=== PATIENT | male | born 1960 | race Caucasian/White ===

== ENCOUNTER 2017-12-02 12:34 | Inpatient (IN) | payer OTHER ==
[~2017-12-02] VITALS: Ht 185.4 cm; Wt 75.9 kg
[~2017-12-02 12:34] MED LIST: FIORICET 325 MG1 TAB PO; PERCOCET 325 MG1 TA2 PO
--- NOTE | 2017-12-02 13:33 | ED GENERAL ADULT ---
History of Present Illness General Chief Complaint: Fall Stated Complaint: SIB DR. VALDIVIA FOR FALLING DOWN Source: patient, family, old records, PCP Exam Limitations: no limitations Vital Signs & Intake/Output Vital Signs & Intake/Output Vital Signs Date Time Temp Pulse Resp B/P B/P Pulse O2 O2 Flow FiO2 Mean Ox Delivery Rate 12/02 1248 98.0 69 15 118/85 95 Room Air Room Air Allergies Coded Allergies: No Known Allergies (12/02/17) Reconcile Medications Acetaminophen/Butalbital/Caf (Fioricet 325 MG-50 MG-40 MG) 1 TAB TAB 1 TAB PO Q6HR PRN PAIN OXYCODONE HCL/ACETAMINOPHEN (Percocet 5-325 MG Tablet) 325 MG/5 MG TAB 1-2 TAB PO Q4-6 PRN PRN PAIN Triage Note: PT TO ED (SENT BY DR. VALDIVIA) FOR FREQUENT FALLS X LAST 6 WEEKS. PT HAS BEEN FALLING AND REPORTS THAT RIGHT BEFORE HE FALLS HE FEELS HIS HEAD THROBBING AND THEN LOSES HIS BALANCE. PT LAST FELL THIS MORNING DENIES LOC, BUT HAS HAD EPISODES THAT HAVE CAUSED LOC. A/OX 4 IN TRIAGE. REPORTS +HEADACHE. HAD HEAD CT DONE YESTERDAY AT [facility] AND BLOOD WORK DONE. Triage Nurses Notes Reviewed? yes HPI: Patient was sent to the emergency department in anticipation of admission. Patient has had a 40 pound unintentional weight loss. Patient states he has no appetite and then when he does eat he gets epigastric pain that is relieved when he is done eating. This is made him not wanting eat. Patient has also been having increasing falls. Patient fell 3 times today alone. Family states that 4 days ago he passed out and was unconscious for 15-20 minutes before coming around again. Patient states he has to walk by holding onto the wall or the countertops. Patient is also been experiencing a throbbing frontal headache that he's had for the past few weeks. The pain is constant. There is no radiation. The pain is 10 out of 10. There are no aggravating or mitigating factors. Patient had a CAT scan of his abdomen and pelvis which was normal as well as a CAT scan of his head which were normal. Past History Travel History Traveled to [place] past 21 day No Medical History Any Pertinent Medical History? see below for history Neurological: NONE EENT: NONE Cardiovascular: NONE Respiratory: SOB Gastrointestinal: DIVERTICULOSIS Hepatic: NONE Renal: NONE Musculoskeletal: NONE Psychiatric: NONE Endocrine: hypothyroidism Surgical History Surgical History: non-contributory Psychosocial History Who do you live with Family What is your primary language Beninese Tobacco Use: Current Daily Use Daily Tobacco Use Amount/Type: => 5 Cigarettes daily ETOH Use: denies use Illicit Drug Use: denies illicit drug use Family History Hx Contributory? No Review of Systems Review of Systems Constitutional: Reports: no symptoms. EENTM: Reports: no symptoms. Respiratory: Reports: no symptoms. Cardiovascular: Reports: no symptoms. GI: Reports: see HPI, abdominal pain. Genitourinary: Reports: no symptoms. Musculoskeletal: Reports: no symptoms. Skin: Reports: no symptoms. Neurological/Psychological: Reports: see HPI, ataxia, headache. Hematologic/Endocrine: Reports: no symptoms. Immunologic/Allergic: Reports: no symptoms. All Other Systems: Reviewed and Negative Physical Exam Physical Exam General Appearance: well developed/nourished, alert, awake, anxious, moderate distress Head: atraumatic, normal appearance Eyes: Bilateral: PERRL, EOMI. Ears, Nose, Throat: normal pharynx, DRY MUCOSA Neck: normal inspection, supple, full range of motion Respiratory: normal breath sounds, chest non-tender, no respiratory distress, lungs clear Cardiovascular: regular rate/rhythm, normal peripheral pulses Gastrointestinal: normal bowel sounds, soft, non-tender, no organomegaly Back: normal inspection, normal range of motion Neurologic/Psych: SEE BELOW Comments: A&O X3 CN 2-12 INTACT MOTRO 5 OVER 5 REFLEXES 1+ SENSATION INTACT PAST POINTING AND ABNORMAL HEEL TO SHINON RIGHT UPON STANDING - LEANS TORIGHT AND NEEDS TO BE CAUGHT Core Measures ACS in differential dx? No CVA/TIA Diagnosis: No Sepsis Present: No Sepsis Focused Exam Completed? No Progress Differential Diagnoses I considered the following diagnoses in my evaluation of the patient: [ INTRACRANIAL MASS,POSTERIOR CVA,ELECTROLYTW BANORMALITY,CANCER] Plan of Care: Orders Procedure Date/time Status Regular Diet 12/02 D Active Patient Data 12/02 1446 Active MRI-HEAD W & W/O AMINTA 12/02 144 Active MRI-CERVICAL W & W/O AMINTA 12/02 1445 Active ED Holding Orders 12/02 1442 Active Admit to inpatient 12/02 1442 Active Vital Signs 12/02 1442 Active Code Status 12/02 1442 Active URINE DRUGS OF ABUSE 12/02 1427 Complete URINALYSIS 12/02 1427 Complete TROPONIN LEVEL 12/02 1332 Complete LIPASE 12/02 1332 Complete COMPREHENSIVE METABOLIC PANEL 12/02 1332 Complete CBC WITHOUT DIFFERENTIAL 12/02 1332 Complete AMYLASE 12/02 1332 Complete EKG 12/02 1250 Active Current Medications Sig/Minesh Start time Last Medication Dose Stop Time Status Admin Sodium Chloride 1,000 ML BOLUS ONE 12/02 1500 AC (Normal Saline 0.9%) 12/02 1559 Laboratory Tests 12/02/17 1441: Anion Gap 10, Estimated GFR > 60, BUN/Creatinine Ratio 20.0, Glucose 96, Calcium 9.8, Total Bilirubin 0.6, AST 21, ALT 30, Alkaline Phosphatase 79, Troponin I < 0.01, Total Protein 7.1, Albumin 4.0, Globulin 3.1, Albumin/Globulin Ratio 1.3, Amylase 42, Lipase 107, CBC w Diff NO MAN DIFF REQ, RBC 4.71, MCV 94.3 H, MCH 31.1 H, MCHC 33.0, RDW 14.1, MPV 7.9, Gran % 61.4, Lymphocytes % 29.9, Monocytes % 6.1, Eosinophils % 2.3, Basophils % 0.3, Absolute Granulocytes 6.1, Absolute Lymphocytes 2.9, Absolute Monocytes 0.6, Absolute Eosinophils 0.2, Absolute Basophils 0 12/02/17 1430: Urine Opiates Screen < 100, Methadone Screen < 40, Barbiturate Screen < 60, Ur Phencyclidine Scrn < 6.00, Amphetamines Screen < 100, U Benzodiazepines Scrn 103 , Urine Cocaine Screen < 50, Urine Cannabis Screen < 5.00, Urine Color YEL, Urine Clarity CLEAR, Urine pH 6.5, Ur Specific [place] 1.010, Urine Protein NEG, Urine Ketones NEG, Urine Nitrite NEG, Urine Bilirubin NEG, Urine Urobilinogen 0.2, Ur Leukocyte Esterase NEG, Ur Microscopic EXAM NOT REQUIRED, Urine Hemoglobin NEG, Urine Glucose NEG Initial ED EKG: NSR, nonspecific ST T wave chg Prior EKG: unchanged Departure Departure Disposition: STILL A PATIENT Condition: Stable Clinical Impression Primary Impression: Ataxia Secondary Impressions: Weight loss Referrals: Red Valdivia MD (PCP/Family) Departure Forms: Customer Survey General Discharge Information Admission Note Spoke With: Rob Valdivia MDhu S. Documentation of Exam: Documentation of any treatments & extenuating circumstances including Concerns Regarding Discharge (functional status, medication knowledge or non-compliance, living conditions, etc.) that warrant an admission rather than observation: [PT IS VERY UNSTABLE ON HIS FEET AND CAN NOT EVEN STAND BY THE BEDSIDE. HE HAS CEREBELLAR FINDINGS. HE NEEDS A NEUROLOGICAL EVALUATION, MRI, PT CONSULT, PT WILL REQUIRE MULTIPLE DAYS IN THE HOSPITAL.] Critical Care Note Critical Care Note Critical Care Time: non-applicable
[2017-12-02 14:22] LABS: ABSOLUTE BASOPHIL COUNT 0 /CUMM (0.0-0.2); ABSOLUTE EOSINOPHIL COUNT 0.2 /CUMM (0.0-0.7); ABSOLUTE GRANULOCYTE CT 6.1 /CUMM (1.4-6.5); ABSOLUTE LYMPH COUNT 2.9 /CUMM (1.2-3.4); ABSOLUTE MONOCYTE COUNT 0.6 /CUMM (0.10-0.60); BASOPHIL % 0.3 % (0.0-2.0); EOSINOPHIL % 2.3 % (0-5); GRANULOCYTE % 61.4 % (42.2-75.2); HEMATOCRIT 44.4 % (42-52); MEAN CORPUSCULAR HGB 31.1 PG (27.0-31.0); MEAN CORPUSCULAR VOLUME 94.3 FL (80.0-94.0); MEAN PLATELET VOLUME 7.9 FL (7.4-10.4); PLATELET COUNT 300 /CUMM (130-400); RBC DISTRIBUTION WIDTH 14.1 % (11.5-14.5); RED BLOOD CELL CT 4.71 /CUMM (4.70-6.10); WHITE BLOOD CELL COUNT 9.9 /CUMM (4.8-10.8)
--- NOTE | 2017-12-02 14:24 | RADIOLOGY REPORT ---
EXAMINATION: XR PORTABLE CHEST CLINICAL INFORMATION: Cough COMPARISON: 11/04/2017 TECHNIQUE: Portable AP 80 degrees upright view of the chest was obtained. FINDINGS: Cardiac and mediastinal silhouettes are normal in appearance. The lungs and pleural spaces are clear. There is widening noted at the right acromioclavicular joint, possibly postoperative. IMPRESSION: The lungs and pleural spaces are clear.
--- NOTE | 2017-12-02 14:37 | PN- Att Addend ---
Attending Addendum Attending Brief Note This is a gentleman with below mentioned problems have been having frequent falls in the past 4-6 weeks. This has been getting worse. This morning he did have a fall. No significant headache but however sometimes he says he does get some throbbing type pain. No significant loss of consciousness but history is not too reliable. Recently he does complain of significant loss of weight in about 30-40 pounds.. He has had significant COPD, ongoing smoking, hyperlipidemia, significant anxiety and depression followed by outpatient psychiatry. He has had GERD and prior weight loss. He has had an extensive GI workup in the past which was unremarkable. Recently did have a CT scan of the abdomen and pelvis with contrast which was unremarkable. He also had had extensive blood work which was unremarkable which included HIV, vasculitis panel, thyroid function test, RPR etc. This has been negative. Previous history of narcotic use but his tox screen has been negative and is not been using any substances. No fever no chills, no recent infection, recent head CT which was unremarkable as well. percent predicted own no admission) (Narcotics for hand surg etc) Review of symptoms Now has occ fall with gait imbalance No head ache Complains of memory loss Previous cervical disc disease but did not see neurosurg, no radiculopathy or any weakness Sig anxiety and depression now slightly, better seeing psych regularly Now has loss of wt Less appetite Previous narcotic addiction to pain meds with sig withdrawal at home did not get admitted at that time, now off narcotics Occ insomnia No suicidal or homicidal ideation No smoking now No etoh No pain med use Occ nausea and wt loss Recent hematuria and is followed by urology and ct abd neg so far Recent blood work reviewed nil acute Past History Travel History Traveled to [place] past 21 day No Medical History Neurological: NONE EENT: NONE Cardiovascular: NONE Respiratory: SOB Gastrointestinal: DIVERTICULOSIS Hepatic: NONE Renal: NONE Musculoskeletal: NONE Psychiatric: NONE Endocrine: hypothyroidism Psychosocial History Who do you live with Family What is your primary language Yoruba Tobacco Use: Current Daily Use Daily Tobacco Use Amount/Type: => 5 Cigarettes daily ETOH Use: denies use Illicit Drug Use: denies illicit drug use On physical exam alert awake and oriented 3 Neck supple no JVD Chest decreased breath sounds otherwise unremarkable Heart S1-S2 was heard negative for any abnormality Abdominal exam soft bowel sounds were heard No cyanosis clubbing Alert awake and oriented 3 Cranial nerves seems intact Motor 5 over 5 Reflexes appears okay Sensation appears intact Abnormal [id number] on the right, upon standing leans to the right. Vital Signs Date Time Temp Pulse Resp B/P B/P Pulse O2 O2 Flow FiO2 Mean Ox Delivery Rate 12/02 1248 98.0 69 15 118/85 95 Room Air Room Air Orders Procedure Date/time Status TROPONIN LEVEL 12/02 1332 Active LIPASE 12/02 1332 Active COMPREHENSIVE METABOLIC PANEL 12/02 1332 Active CBC WITHOUT DIFFERENTIAL 12/02 1332 Complete AMYLASE 12/02 1332 Active EKG 12/02 1250 Active IMPRESSION This is a gentleman with significant history of prior smoking, moderate to severe COPD with FEV1 of around 2 L, hyperlipidemia, anxiety and depression followed by psychiatry, hypothyroidism on appropriate replacement therapy, previous GERD, [id number] smoking history quit in 2014, stable lung nodule which is 3 mm, previous cervical disc herniation C6-C7 at that time had not seen a neurosurgeon few years ago with no previous radiculopathy, previous colon polyp followed by Dr. Toledo, previous urinary urgency and mild hematuria followed by urology, previous history of narcotic addiction now has been not using any substances now has * Progressive history of recurrent fall with loss of balance and lower extremity weakness with no significant radiculopathy. Differential diagnosis is broad. Patient has had recent extensive blood work which has been negative. (Negative for HIV, no evidence suggestive of vasculitis, normal B12, negative RPR etc.) Differential diagnoses is broad which include cervical myelopathy versus peripheral neuropathy versus demyelinating syndrome patient needs to be admitted * Significant weight loss and an ex-smoker. With normal chest x-ray to rule out malignancy. Recent CT abdomen and pelvis with contrast unremarkable needs a CT chest * Previous total thyroidectomy Hypothyroidism, on appropriate replacement therapy, hyperlipidemia stable. * Previous history of GERD and diarrhea and weight loss with negative panendoscopy few years ago with no significant diarrhea * Significant anxiety and depression followed by psychiatry on a regular basis patient says she is not too depressed however this needs to be ruled out as well * Recent hematuria, urinary urgency with negative CT scan followed by urology patient is pending cystoscopy * Previous history of narcotic addiction but no evidence suggestive of substance use in the recent past PLAN Admit him to the hospital Frequent neuro checks Neurology consult MRI of the head with and without gadolinium Carotid ultrasound MRI of the C-spine to rule out any significant cervical myelopathy Check random cortisol level We will follow closely
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
[2017-12-02] MEDS ORDERED: LEVOTHYROXINE100 MC1 PO (15:44)
[2017-12-02] MEDS ORDERED: LORAZEPAM1 M1 PO (15:45)
[2017-12-02] MEDS ORDERED: GABAPENTIN300 M2 PO (15:45)
[2017-12-02] MEDS ORDERED: SYMBICORT 16010.2 GM INH (15:45)
[2017-12-02] MEDS ORDERED: SERTRALINE HCL100 MG PO (15:46)
[2017-12-02] MEDS ORDERED: PROAIR HFA8.5 GM INH (15:46)
[2017-12-02] MEDS ORDERED: ASPIRIN EC81 M1 PO (15:46)
[2017-12-02] MEDS ORDERED: TAMSULOSIN HCL0.4 M1 PO (15:46)
[2017-12-02] MEDS ORDERED: OMEPRAZOLE20 M3 PO (15:47)
--- NOTE | 2017-12-02 18:08 | MRI REPORT ---
MRI OF THE BRAIN WITH AND WITHOUT IV CONTRAST MRI OF THE CERVICAL SPINE WITH AND WITHOUT IV CONTRAST INDICATION: Weight loss, ataxia, and cerebellar findings. Question mass. COMPARISON: Head CT 12/01/2017. TECHNIQUE: Multiplanar multisequence MR imaging of the brain and cervical spine are obtained without and following the administration of 8 cc of Gadavist without complication. FINDINGS: BRAIN MRI: There is no pathologic intracranial enhancement. There is no hydrocephalus, extra-axial surface collection, or herniation. There are mild T2 signal changes within the supratentorial white matter, likely mild chronic microangiopathy. The major flow voids at the skull base are preserved. There is no acute infarct on diffusion-weighted imaging. There is no intracranial hemorrhage on the gradient recalled echo acquisition. The midline structures are normal. The cerebellar tonsils are normally positioned. The cerebellum and brainstem are normal. The craniocervical junction is normal. Osseous marrow signal intensity is homogenous. The visualized soft tissues are unremarkable. CERVICAL SPINE MRI: There is mild retrosubluxation of C3 on C4, C4 on C5, and C5 on C6. Vertebral body heights are maintained. There is moderate disc volume loss at C4-C5 and mild disc volume loss at C5-C6 and C6-C7. Mild Modic type I endplate signal changes at C6-C7. No additional bone marrow edema. No acute fractures. Brain cervical junction is unremarkable. No pathologic intrathecal enhancement. There is prominent symmetric soft tissue at the tongue base, likely lingual tonsillar hypertrophy that can be correlated with direct visual inspection. The cervical arterial flow voids are maintained. No definite true cord signal abnormality is appreciated with assessment limited by the degree of artifact. C2-C3: Disc contour is normal. There is no central canal stenosis and there is no foraminal stenosis. There is mild bilateral facet arthropathy. C3-C4: There is a central disc protrusion that flattens the ventral cord, resulting in mild narrowing of the central canal. Leftward than right uncovertebral joint hypertrophy and hypertrophic facet arthropathy with moderate to severe left and mild right foraminal stenosis. C4-C5: Diffuse disc osteophyte complex and ligamentum flavum thickening result in moderate central canal stenosis and mild flattening of the ventral cord. Left greater than right uncovertebral joint hypertrophy and hypertrophic facet arthropathy with severe left and moderate to severe right foraminal stenosis. C5-C6: There is a diffuse disc osteophyte complex that along with ligamentum flavum thickening results in moderate central canal stenosis and mild mass effect on the cord. Uncovertebral joint hypertrophy and hypertrophic facet arthropathy bilaterally, greater on the left with moderate to severe left and moderate right foraminal stenosis. C6-C7: A central disc protrusion indents the ventral thecal sac without resulting in significant central canal stenosis. Bilateral uncovertebral joint hypertrophy and hypertrophic facet arthropathy resulting in moderate bilateral foraminal stenosis. C7-T1: Disc contour is normal. No central canal stenosis and no foraminal stenosis. IMPRESSION: - No acute intracranial findings. No enhancing lesions. Mild chronic microangiopathy. - Multilevel cervical spondylosis. Multifactorial degenerative changes result in moderate central canal stenosis and mild mass effect on the cervical cord at the C4-C5 and C5-C6 levels and a central disc protrusion at C3-C4 slightly flattens the ventral cord without significant central canal stenosis. Varying degrees of moderate to severe foraminal stenosis throughout the cervical spine as described. No pathologic enhancement within the cervical spine. - There is prominent symmetric soft tissue at the tongue base, likely lingual tonsillar hypertrophy that can be correlated with direct visual inspection.
--- NOTE | 2017-12-02 18:57 | ULTRASOUND REPORT ---
US DUPLEX CAROTID AND VERTEBRAL CLINICAL INFORMATION: Dizziness and frequent falls. COMPARISON: None available. TECHNIQUE: Real-time ultrasound and Doppler techniques (integrating B-mode 2D vascular images, Doppler spectral analysis and color flow Doppler imaging) were utilized to interrogate the extracranial carotid and vertebral arteries bilaterally. The degree of stenosis determined by criteria similar to NASCET. FINDINGS: Right common carotid artery peak systolic velocity is 79.2 cm/s. Right internal carotid artery peak systolic velocities range between 45.1 and 94.4 cm/s with a maximal end-diastolic velocity of 48.7 cm/s. Right external carotid artery peak systolic velocity is 86.8 cm/s. There is antegrade flow within the right vertebral artery. No atherosclerotic plaque at the right carotid bifurcation. Left common carotid artery peak systolic velocity is 110 cm/s. Left internal carotid artery peak systolic velocity ranges between 76.2 and 93.2 cm/s with a maximal end-diastolic velocity of 44 cm/s. Left external carotid artery peak systolic velocity is 83.8 cm/s. There is antegrade flow within the left vertebral artery. No atherosclerotic plaque at the left carotid bifurcation. IMPRESSION: Unremarkable carotid ultrasound. There is no significant arterial stenosis involving the internal carotid arteries by sonographic criteria. Normal antegrade flow within the vertebral arteries bilaterally.
--- NOTE | 2017-12-02 20:27 | CT SCAN REPORT ---
CT CHEST WITH CONTRAST CLINICAL INFORMATION: Patient has a known 3 mm lung nodule. Looking for new mass versus pathology. COMPARISON: Chest CT 02/02/2017. TECHNIQUE: Multidetector volumetric CT imaging of the chest was obtained after the administration of 65 mL of Optiray 320 intravenous contrast without immediate adverse reactions. Axial MIP volume rendering provided. Sagittal and coronal reformatted images were obtained. FINDINGS: There is a new irregularly shaped 1.3 cm AP by 0.9 cm TV by 1.9 cm CC nodule within the medial aspect of the left upper lobe inseparable from and occluding a left upper lobe segmental bronchus and tracking along a few subsegmental bronchi in this region on image 179 of series 4. There are pulmonary arterial branches along the anterior and posterior medial margin of this lesion and there is a pulmonary vein along the anterolateral margin of this lesion. Findings are highly concerning for pulmonary malignancy and can be followed with PET and/or biopsy. There is a stable appearing 3 mm pulmonary nodule within the right upper lobe on image 226 of series 4. There is a stable appearing 3 mm pulmonary nodule within the right lower lobe in image 393 of series 4. There is centrilobular emphysema. There are multiple nodular groundglass opacities within the medial aspect of the left upper lobe not present on prior studies that may be infectious, inflammatory, or neoplastic in etiology. Dependent secretions within the trachea. The thoracic aorta is normal in caliber. The heart is normal in size without evidence of a pericardial effusion. There is no mediastinal, hilar, or axillary adenopathy. There is nodularity of the left adrenal gland that can be further assessed with a PET/CT in light of the above findings. No acute osseous abnormalities. Thoracic spondylosis. No suspicious intraosseous lesions. IMPRESSION: - There is a new irregularly shaped 1.3 cm AP by 0.9 cm TV by 1.9 cm CC nodule within the medial aspect of the left upper lobe inseparable from and occluding a left upper lobe segmental bronchus and tracking along a few subsegmental bronchi in this region on image 179 of series 4. There are pulmonary arterial branches along the anterior and posterior medial margin of this lesion and there is a pulmonary vein along the anterolateral margin of this lesion. Findings are highly concerning for pulmonary malignancy and can be followed with PET and/or biopsy. - There are multiple nodular groundglass opacities within the medial aspect of the left upper lobe not present on prior studies that may be infectious, inflammatory, or neoplastic in etiology. - There is nodularity of the left adrenal gland that can be further assessed with a PET/CT in light of the above findings. - There is no mediastinal lymphadenopathy. - There are stable appearing 3 mm pulmonary nodules within the right upper lobe and the right lower lobe. - There is centrilobular emphysema.
[2017-12-02 22:12] VITALS: BP 122/80
[2017-12-03 06:48] VITALS: BP 92/60
[2017-12-03 08:16] VITALS: BP 90/64
[2017-12-03 08:23] LABS: ABSOLUTE BASOPHIL COUNT 0 /CUMM (0.0-0.2); ABSOLUTE EOSINOPHIL COUNT 0.2 /CUMM (0.0-0.7); ABSOLUTE GRANULOCYTE CT 4.3 /CUMM (1.4-6.5); ABSOLUTE LYMPH COUNT 2.5 /CUMM (1.2-3.4); ABSOLUTE MONOCYTE COUNT 0.5 /CUMM (0.10-0.60); BASOPHIL % 0.4 % (0.0-2.0); EOSINOPHIL % 3.1 % (0-5); GRANULOCYTE % 57.2 % (42.2-75.2); HEMATOCRIT 42.3 % (42-52); MEAN CORPUSCULAR HGB 30.9 PG (27.0-31.0); MEAN CORPUSCULAR HGB CONC 32.9 G/DL (33.0-37.0); MEAN CORPUSCULAR VOLUME 93.9 FL (80.0-94.0); MEAN PLATELET VOLUME 8.6 FL (7.4-10.4); PLATELET COUNT 294 /CUMM (130-400); RBC DISTRIBUTION WIDTH 14.7 % (11.5-14.5); RED BLOOD CELL CT 4.51 /CUMM (4.70-6.10); WHITE BLOOD CELL COUNT 7.5 /CUMM (4.8-10.8)
--- NOTE | 2017-12-03 10:43 | PN- Att Addend ---
Attending Addendum Attending Brief Note Covering attending note. Patient seems anxious and wants to go home. Neurology consult pending depending on their findings we may be able to let him go home and continue the workup as an outpatient blood pressure slightly on the low side, which check orthostatics. No other changes on physical patient is alert and oriented 3 24 TOTALS 12/03 0000 12/02 0000 Intake Total 100 Output Total Balance 100 Intake, IV 0 Intake, Oral 100 Patient 167 lb Weight Weight Bed scale Measurement Method Current Medications Sig/Minesh Start time Last Medication Dose Route Stop Time Status Admin Acetaminophen 0 .STK-MED ONE 12/02 2009 DC PO Acetaminophen 650 MG Q6PRN PRN 12/02 1600 AC 12/02 PO 2007 Albuterol Sulfate 2 PUF Q4P PRN 12/02 1630 AC INH Budesonide/ 2 PUF Q12H 12/03 1900 AC Formoterol Fumarate INH Budesonide/ 2 PUF BID 12/02 2200 DC 12/03 Formoterol Fumarate INH 0718 Enoxaparin Sodium 0 .STK-MED ONE 12/02 2017 DC SC Enoxaparin Sodium 40 MG DAILY 12/02 1556 AC 12/03 SC 0910 Gabapentin 300 MG QPM 12/02 2200 AC 12/02 PO 2140 Ketorolac 30 MG ONCE ONE 12/02 1500 DC 12/02 Tromethamine IV 12/02 1501 1452 Ketorolac 0 .STK-MED ONE 12/02 1455 DC Tromethamine .ROUTE Levothyroxine Sodium 0.1 MG DAILY AC 12/03 0700 AC 12/03 PO 0538 Lorazepam 2 MG QPM 12/02 2200 AC 12/02 PO 2140 Nicotine 7 MG Q24 12/02 1555 AC TOP Omeprazole 0 .STK-MED ONE 12/02 2017 DC PO Omeprazole 40 MG DAILY AC 12/02 1628 AC 12/03 PO 0538 Sertraline HCl 150 MG DAILY 12/02 1628 AC 12/03 PO 0910 Sodium Chloride 1,000 ML BOLUS ONE 12/02 1500 DC 12/02 IV 12/02 1559 1452 Tamsulosin HCl 0.4 MG DAILY 12/02 1629 AC 12/03 PO 0910 Laboratory Tests 12/03/17 0630: Anion Gap 11, Estimated GFR > 60, BUN/Creatinine Ratio 18.8, CBC w Diff NO MAN DIFF REQ, RBC 4.51 L, MCV 93.9, MCH 30.9, MCHC 32.9 L, RDW 14.7 H, MPV 8.6, Gran % 57.2, Lymphocytes % 32.9, Monocytes % 6.4, Eosinophils % 3.1, Basophils % 0.4, Absolute Granulocytes 4.3, Absolute Lymphocytes 2.5, Absolute Monocytes 0.5 , Absolute Eosinophils 0.2, Absolute Basophils 0 12/02/17 1441: Anion Gap 10, Estimated GFR > 60, BUN/Creatinine Ratio 20.0, Glucose 96, Calcium 9.8, Total Bilirubin 0.6, AST 21, ALT 30, Alkaline Phosphatase 79, Lactate Dehydrogenase 361, Troponin I < 0.01, Total Protein 7.1, Albumin 4.0, Globulin 3.1, Albumin/Globulin Ratio 1.3, Amylase 42, Lipase 107, Cortisol PM Sample 7.4, CBC w Diff NO MAN DIFF REQ, RBC 4.71, MCV 94.3 H, MCH 31.1 H, MCHC 33.0, RDW 14.1, MPV 7.9, Gran % 61.4, Lymphocytes % 29.9, Monocytes % 6.1, Eosinophils % 2.3, Basophils % 0.3, Absolute Granulocytes 6.1, Absolute Lymphocytes 2.9, Absolute Monocytes 0.6, Absolute Eosinophils 0.2, Absolute Basophils 0 12/02/17 1430: Urine Opiates Screen < 100, Methadone Screen < 40, Barbiturate Screen < 60, Ur Phencyclidine Scrn < 6.00, Amphetamines Screen < 100, U Benzodiazepines Scrn 103 , Urine Cocaine Screen < 50, Urine Cannabis Screen < 5.00, Urine Color YEL, Urine Clarity CLEAR, Urine pH 6.5, Ur Specific [place] 1.010, Urine Protein NEG, Urine Ketones NEG, Urine Nitrite NEG, Urine Bilirubin NEG, Urine Urobilinogen 0.2, Ur Leukocyte Esterase NEG, Ur Microscopic EXAM NOT REQUIRED, Urine Hemoglobin NEG, Urine Glucose NEG Vital Signs Date Time Temp Pulse Resp B/P B/P Pulse O2 O2 Flow FiO2 Mean Ox Delivery Rate 12/03 0910 69 90/64 12/03 0816 69 9064 12/03 0800 Room Air 12/03 0648 97.5 73 18 92/60 94 Room Air 12/02 2212 97.4 59 20 122/80 97 Room Air 12/02 2032 Room Air 12/02 2019 97.3 60 18 145/87 03 1913 97.3 60 18 145/87 95 12/02 1856 97.8 64 18 122/81 98 Room Air 12/02 1624 96 Room Air 12/02 1548 97.4 57 18 133/80 98 12/02 1423 Room Air 12/02 1248 98.0 69 15 118/85 95 Room Air Room Air
[2017-12-03 11:58] VITALS: BP 100/60
--- NOTE | 2017-12-03 13:26 | PN- Housestaff ---
Subjective Follow-up For: Recurrent falls and imbalance Significant weight loss and postprandial abdominal pain History of total thyroidectomy and hypothyroidism History of GERD History of depression and anxiety Hematuria History of narcotic use Tele-Events Since Last Visit: Normal sinus rhythm, 5871, QRS 0.08, VT 0.2 Subjective: Patient was seen and examined at bedside, he denies any complaints or dizziness, no overnight events, orthostats were positive, anxious to go home Review of Systems Constitutional: Denies: no symptoms. Cardiovascular: Denies: no symptoms. Respiratory: Denies: no symptoms. Gastrointestinal: Denies: no symptoms. Objective Last 24 Hrs of Vital Signs/I&O Vital Signs Date Time Temp Pulse Resp B/P B/P Pulse O2 O2 Flow FiO2 Mean Ox Delivery Rate 12/03 1158 53 100/60 12/03 1113 Room Air Room Air 12/03 0910 69 90/64 12/03 0816 69 90/64 12/03 0800 Room Air 12/03 0648 97.5 73 18 92/60 94 Room Air 12/02 2212 97.4 59 20 122/80 97 Room Air 12/02 2032 Room Air 12/02 2019 97.3 60 18 145/87 12/02 1913 97.3 60 18 145/87 95 12/02 1856 97.8 64 18 122/81 98 Room Air 12/02 1624 96 Room Air 12/02 1548 97.4 57 18 133/80 98 12/02 1423 Room Air Intake & Output 12/03 1600 12/03 0800 12/03 0000 Intake Total 100 Output Total Balance 100 Intake, IV 0 Intake, Oral 100 Patient 167 lb Weight Weight Bed scale Measurement Method Physical Exam General Appearance: Alert, Oriented X3, Cooperative, No Acute Distress HEENT: Atraumatic, PERRLA, EOMI, Mucous Membr. moist/pink Neck: Supple, No JVD Cardiovascular: Normal S1, Normal S2, No Murmurs Lungs: Clear to Auscultation Abdomen: Normal Bowel Sounds, Soft, No Tenderness Neurological: Normal Speech, Strength at 5/5 X4 Ext, Normal Tone, Sensation Intact, Cranial Nerves 3-12 NL Extremities: No Clubbing, No Cyanosis Assessment/Plan Assessment: 57 years old male with past medical history of hypothyroidism,HLD, and anxiety, GERD, lung nodule, cervical disc disease, gait instability, memory loss, narcotic addiction who quit in 2013 comes into the ED sent by Dr. Valdivia for frequent falls for the past 46 weeks.Patient also reports having headache because he bumped his head when he fell down a few days ago. Patient reports with loss of 3040 pounds over the past 3 months due to loss of appetite and abdominal pain after eating. The patient was using Ensure to supplement his diet. Head and neck MRI showed : no acute intracranial findings,No enhancing lesions. Mild chronic microangiopathy.Multilevel cervical spondylosis.There is prominent symmetric soft tissue at the tongue base, likely lingual tonsillar hypertrophy CT chest:: There is a new irregularly shaped 1.3 cm AP by 0.9 cm TV by 1.9 cm CC nodule within the medial aspect of the left upper lobe inseparable from and occluding a left upper lobe segmental bronchus and tracking along a few subsegmental bronchi in this region on image 179 of series 4. There are pulmonary arterial branches along the anterior and posterior medial margin of this lesion and there is a pulmonary vein along the anterolateral margin of this lesion. Findings are highly concerning for pulmonary malignancy and can be followed with PET and/or biopsy. - There are multiple nodular groundglass opacities within the medial aspect of the left upper lobe not present on prior studies that may be infectious, inflammatory, or neoplastic in etiology. - There is nodularity of the left adrenal gland that can be further assessed with a PET/CT in light of the above findings. Carotid Doppler: Unremarkable carotid ultrasound Problem list: Recurrent falls and imbalance New lung lesion seen on CT Significant weight loss and postprandial abdominal pain History of total thyroidectomy and hypothyroidism History of GERD History of depression and anxiety Hematuria History of narcotic use Plan: Admit to telemetry Vitals every shift Orthostatic blood pressure were positive Neuro-Cheks q. 4 Random cortisol level, lactic acid, LDH for possible bowel ischemia (postprandial abdominal pain was weight loss) Neurology consult appreciated Gastroenterology consult appreciated Continue home meds Monitor intake and output Monitor CBCs and BEP Full code DVT prophylaxis with subcutaneous Lovenox Regular diet Problem List: 1. Weight loss 2. Abdominal pain 3. Syncope Pain Ratin Pain Location: N/A Pain Goal: Remain pain free Pain Plan: PATHWAY Tomorrow's Labs & Rationales: CBC BEP DVT/Prophylaxis: mechanical, pharmacological
[2017-12-03 14:00] VITALS: BP 86/48
--- NOTE | 2017-12-03 15:51 | Discharge Summary ---
Visit Information Visit Dates Admission Date: 12/02/17 Discharge Date: 12/04/17 Hospital Course Course Attending Physician: Red Valdivia MD Primary Care Physician: Red Valdivia MD Hospital Course: 57 years old male with past medical history of hypothyroidism,HLD, and anxiety, GERD, lung nodule, cervical disc disease, gait instability, memory loss, narcotic addiction who quit in 2013 comes into the ED sent by Dr. Valdivia for frequent falls for the past 46 weeks. Patient reports that he fell down 3 times today. Patient denies loss of consciousness however he had one episode 2 days ago when he fell down and lost consciousness for 15 minutes however this episode was unwitnessed and he denies any palpitation before or after this episode and he also denies any urinary or fecal incontinence after that episode. The patient endorsed dizziness before falling down. He also reports that he gets dizzy with sudden movement of his head. Patient also endorses nausea associated with the dizziness. Patient also reported having headache because he bumped his head when he fell down a few days ago. Patient reports with loss of 3040 pounds over the past 3 months due to loss of appetite and abdominal pain after eating. The patient was using Ensure to supplement his diet. The patient had colonoscopy on August 2015 which showed small hiatal hernia, moderate left colonic diverticuli, small right colon polyps, moderate internal hemorrhoids Patient also endorsed history of hemoptysis of small amount of blood a few weeks ago currently is having mild cough with yellowish sputum. He also reports night sweats, ED course: Blood pressure 133/80, pulse 57, temperature 97.4, respiratory rate 18, pulse ox 98 Labs: WBC 9.9, hemoglobin 14.6, hematocrit 44.4, platelets 300, sodium 145, potassium 5.1, BUN 16, creatinine 0.8, glucose 96, calcium 9.8, AST 21, ALT 30, LDH 361, troponin less than 0.01, MID is 42, lipase 107, urine toxicology was negative, urine analysis was normal, cortisol level was normal. Chest x-ray the lung and pleural spaces are clear Chest CT: - There is a new irregularly shaped 1.3 cm AP by 0.9 cm TV by 1.9 cm CC nodule within the medial aspect of the left upper lobe inseparable from and occluding a left upper lobe segmental bronchus and tracking along a few subsegmental bronchi in this region on image 179 of series 4. There are pulmonary arterial branches along the anterior and posterior medial margin of this lesion and there is a pulmonary vein along the anterolateral margin of this lesion. Findings are highly concerning for pulmonary malignancy and can be followed with PET and/or biopsy. - There are multiple nodular groundglass opacities within the medial aspect of the left upper lobe not present on prior studies that may be infectious, inflammatory, or neoplastic in etiology. - There is nodularity of the left adrenal gland that can be further assessed with a PET/CT in light of the above findings. - There is no mediastinal lymphadenopathy. - There are stable appearing 3 mm pulmonary nodules within the right upper lobe and the right lower lobe. Head and cervical MRI: - No acute intracranial findings. No enhancing lesions. Mild chronic microangiopathy. - Multilevel cervical spondylosis. Multifactorial degenerative changes result in moderate central canal stenosis and mild mass effect on the cervical cord at the C4-C5 and C5-C6 levels and a central disc protrusion at C3-C4 slightly flattens the ventral cord without significant central canal stenosis. Varying degrees of moderate to severe foraminal stenosis throughout the cervical spine as described. No pathologic enhancement within the cervical spine. - There is prominent symmetric soft tissue at the tongue base, likely lingual tonsillar hypertrophy that can be correlated with direct visual inspection. Carotid doppler: Unremarkable carotid ultrasound. There is no significant arterial stenosis involving the internal carotid arteries by sonographic criteria. Normal antegrade flow within the vertebral arteries bilaterally. The patient was observed on telemetry, chest new irregularly shaped 1.3 cm AP by 0.9 cm TV by 1.9 cm CC nodule within the medial aspect of the left upper lobe Results were discussed with the patient, he was made aware that he needs further outpatient PET scan follow-up to verify the nature of the lesion. Allergies: Coded Allergies: No Known Allergies (12/02/17) Disposition Summary Disposition Principal Diagnosis: frequent falls Additional Diagnosis: lung nodule/new lesion Discharge Disposition: home or self care Discharge Instructions General Discharge Information Code Status: Full Code Patient's Diet: regular diet Patient's Activity: As tolerated Follow-Up Instructions/Appts: 1please follow-up with your PCP in 1 week discharge 2please follow-up with your neurologist in 1 week discharge 3please follow-up with your pain management physician in 1 week discharge for lung lesion for PET scan 4please follow-up with your urologist in 1 week of discharge Medications at Discharge Discharge Medications: Continue taking these medications: Levothyroxine Sodium (Levothyroxine Sodium) 100 MCG TABLET 1 Tablet ORAL DAILY Qty = 90 Comments: Last Taken:12/04/17 Time:0700 Budesonide/Formoterol Fumarate (Symbicort 160-4.5 Mcg Inhaler) 160 MCG-4.5 MCG/ ACTUATION HFA.AER.AD 2 Puff Inhale through mouth TWICE DAILY Qty = 10 Comments: Last Taken:12/04/17 Time:1000 Lorazepam (Lorazepam) 1 MG TABLET 2 Tablet ORAL Every night Qty = 60 Comments: Last Taken:12/03/17 Time:10PM Gabapentin (Gabapentin) 300 MG CAPSULE 1 Capsule ORAL Every night Qty = 30 Comments: Last Taken:12/03/17 Time:10PM Sertraline HCl (Sertraline HCl) 100 MG TABLET 1.5 Tablet ORAL DAILY Qty = 90 Comments: Last Taken:12/04/17 Time:1000 Albuterol Sulfate (Proair Hfa) 90 MCG HFA.AER.AD 2 Puff Inhale through mouth As Directed as needed for COPD Qty = 8 Tamsulosin HCl (Tamsulosin HCl) 0.4 MG CAP.ER.24H 1 Capsule ORAL DAILY Qty = 30 Comments: Last Taken:12/04/17 Time:1000 Aspirin (Ecotrin*) 81 MG TABLET. 1 Tablet ORAL DAILY Comments: Last Taken:12/04/17 Time:9AM Omeprazole (Omeprazole) 20 MG TABLET. 1 Tablet ORAL DAILY Comments: Last Taken:12/04/17 Time:0700 Copies To: Shea MALCOLM,Red Cummigns
[2017-12-03] MEDS ORDERED: NICOTINE PATCH1 EAC1 TOP (15:52)
--- NOTE | 2017-12-03 15:53 | Patient Discharge Instructions ---
Discharge Instructions General Discharge Information You were seen/treated for: Recurrent falls and imbalance Significant weight loss and postprandial abdominal pain Special Instructions: 1please follow-up with your PCP in 1 week discharge 2please follow-up with your neurologist in 1 week discharge 3please follow-up with your energy manager in 1 week discharge for lung lesion for PET scan 4please follow-up with your urologist in 1 week of discharge Diet Continue normal diet: Yes Acute Coronary Syndrome Inclusion Criteria At DC or during hospital stay patient has or had the following: ACS DIAGNOSIS No Discharge Core Measures Meds if any: Prescribed or Continued at Discharge Meds if any: NOT Prescribed or Continued at Discharge Congestive Heart Failure Inclusion Criteria At DC or during hospital stay patient has or had the following: CHF DIAGNOSIS No Discharge Core Measures Meds if any: Prescribed or Continued at Discharge Meds if any: NOT Prescribed or Continued at Discharge Cerebrovascular accident Inclusion Criteria At DC or during hospital stay patient has or had the following: CVA/TIA Diagnosis No Discharge Core Measures Meds if any: Prescribed or Continued at Discharge Meds if any: NOT Prescribed or Continued at Discharge Venous thromboembolism Inclusion Criteria VTE Diagnosis No VTE Type NONE VTE Confirmed by (Test) NONE Discharge Core Measures - Per Current guidelines, there needs to be overlap - treatment for the first 5 days of Warfarin therapy. - If discharged on Warfarin prior to 5 days of - overlap therapy, the patient will need to be - assessed for post discharge needs including - *Post discharge parental anticoagulation - *Warfarin and/or parental anticoagulation education - *Follow up date to check INR post discharge At least 5 days overlap therapy as Inpatient No Meds if any: Prescribed or Continued at Discharge Note: Overlap Therapy is Warfarin and Anticoagulant Meds if any: NOT Prescribed or Continued at Discharge
--- NOTE | 2017-12-03 17:37 | Cons- Gastroenterology ---
General Information and HPI Consulting Request Date of Consult: 12/03/17 Requested By: Shea MALCOLM,Red Cummings Reason for Consult: 1. Abdominal Pain 2. Weight Loss Source of Information: patient Exam Limitations: no limitations History of Present Illness: Mr. Rodríguez is a 57-year-old man who presents to [facility] with a chief complaint of dizziness with accompanied falls and nausea. He has also had an unintentional weight loss of 30-40 pounds over the past 6 weeks. He has had associated symptoms of hematuria and was scheduled to see Dr. Mccormack for outpatient cystoscopy. He has also had a persistent cought with associated hemoptysis and has noted some melenic stools. Of note on admission, Mr. Rodríguez had a CT Scan of the chest, the results of which are as follows: FINDINGS: There is a new irregularly shaped 1.3 cm AP by 0.9 cm TV by 1.9 cm CC nodule within the medial aspect of the left upper lobe inseparable from and occluding a left upper lobe segmental bronchus and tracking along a few subsegmental bronchi in this region on image 179 of series 4. There are pulmonary arterial branches along the anterior and posterior medial margin of this lesion and there is a pulmonary vein along the anterolateral margin of this lesion. Findings are highly concerning for pulmonary malignancy and can be followed with PET and/or biopsy. There is a stable appearing 3 mm pulmonary nodule within the right upper lobe on image 226 of series 4. There is a stable appearing 3 mm pulmonary nodule within the right lower lobe in image 393 of series 4. There is centrilobular emphysema. There are multiple nodular groundglass opacities within the medial aspect of the left upper lobe not present on prior studies that may be infectious, inflammatory, or neoplastic in etiology. Dependent secretions within the trachea. The thoracic aorta is normal in caliber. The heart is normal in size without evidence of a pericardial effusion. There is no mediastinal, hilar, or axillary adenopathy. There is nodularity of the left adrenal gland that can be further assessed with a PET/CT in light of the above findings. No acute osseous abnormalities. Thoracic spondylosis. No suspicious intraosseous lesions. IMPRESSION: - There is a new irregularly shaped 1.3 cm AP by 0.9 cm TV by 1.9 cm CC nodule within the medial aspect of the left upper lobe inseparable from and occluding a left upper lobe segmental bronchus and tracking along a few subsegmental bronchi in this region on image 179 of series 4. There are pulmonary arterial branches along the anterior and posterior medial margin of this lesion and there is a pulmonary vein along the anterolateral margin of this lesion. Findings are highly concerning for pulmonary malignancy and can be followed with PET and/or biopsy. - There are multiple nodular groundglass opacities within the medial aspect of the left upper lobe not present on prior studies that may be infectious, inflammatory, or neoplastic in etiology. - There is nodularity of the left adrenal gland that can be further assessed with a PET/CT in light of the above findings. - There is no mediastinal lymphadenopathy. - There are stable appearing 3 mm pulmonary nodules within the right upper lobe and the right lower lobe. - There is centrilobular emphysema. We are consulted for evaluation of abdominal pain. Mr. Rodríguez reports that he has mid and lower abdominal pain that occurs mostly after meals when he eats heavier or greasy foods such as hamburgers or quesadillas. He has been drinking and sure for nutrition although if he eats environmental protection forester things like eggs were mashed potatoes he has no problems eating. He reports that he has no appetite. He does not have early satiety and although he does not have any pain after eating whiter foods he truly has no desire to eat. He has had no melena nor bright red blood per rectum. He is a patient of Dr. Srinivas Toledo and last had an EGD and colonoscopy in August 2015 that showed small right-sided colonic polyps, mild diverticulosis and hemorrhoids. EGD was unremarkable except for a small hiatal hernia. He is not aware of the results of his CT scan of the chest. He is quite angry and feels that he has not been seen by any physicians while admitted to the hospital even though I pointed out to him that he had been seen by several doctors which she subsequently remembered. Allergies/Medications Allergies: Coded Allergies: No Known Allergies (12/02/17) Home Med List: Albuterol Sulfate (Proair Hfa) 90 MCG HFA.AER.AD 2 PUF INH AD PRN COPD ( Reported) Aspirin (Ecotrin*) 81 MG TABLET.DR 1 TAB PO DAILY HEART/BLOOD (Reported) Budesonide/Formoterol Fumarate (Symbicort 160-4.5 Mcg Inhaler) 160 MCG-4.5 MCG/ ACTUATION HFA.AER.AD 2 PUF INH BID COPD (Reported) Gabapentin 300 MG CAPSULE 1 CAP PO QPM SLEEP (Reported) Levothyroxine Sodium 100 MCG TABLET 1 TAB PO DAILY THYROID (Reported) Lorazepam 1 MG TABLET 2 TAB PO QPM ANXIETY/SLEEP (Reported) Nicotine (Nicotine Patch) 7 MG/24 HOUR PATCH.TD24 7 MG TOP Q24 smoking Omeprazole 20 MG TABLET.DR 1 TAB PO DAILY GI (Reported) Sertraline HCl 100 MG TABLET 1.5 TAB PO DAILY MENTAL HEALTH (Reported) Tamsulosin HCl 0.4 MG CAP.ER.24H 1 CAP PO DAILY PROSTATE (Reported) Current Medications: Current Medications Sig/Minesh Start time Last Medication Dose Route Stop Time Status Admin Acetaminophen 0 .STK-MED ONE 12/02 2009 DC PO Acetaminophen 650 MG Q6PRN PRN 12/02 1600 AC 12/02 PO 2007 Albuterol Sulfate 2 PUF Q4P PRN 12/02 1630 AC INH Budesonide/ 2 PUF Q12H 12/03 1900 AC Formoterol Fumarate INH Budesonide/ 2 PUF BID 12/02 2200 DC 12/03 Formoterol Fumarate INH 0718 Enoxaparin Sodium 0 .STK-MED ONE 12/02 2017 DC SC Enoxaparin Sodium 40 MG DAILY 12/02 1556 AC 12/03 SC 0910 Gabapentin 300 MG QPM 12/02 2200 AC 12/02 PO 2140 Levothyroxine Sodium 0.1 MG DAILY AC 12/03 0700 AC 12/03 PO 0538 Lorazepam 2 MG QPM 12/02 2200 AC 12/02 PO 2140 Nicotine 7 MG Q24 12/02 1555 AC TOP Omeprazole 0 .STK-MED ONE 12/02 2017 DC PO Omeprazole 40 MG DAILY AC 12/02 1628 AC 12/03 PO 0538 Sertraline HCl 150 MG DAILY 12/02 1628 AC 12/03 PO 0910 Tamsulosin HCl 0.4 MG DAILY 12/02 1629 AC 12/03 PO 0910 Past History Travel History Traveled to [place] past 21 day No Medical History Blood Transfusion Hx: No Neurological: NONE EENT: NONE Cardiovascular: NONE Respiratory: SOB Gastrointestinal: DIVERTICULOSIS Acid reflux Hepatic: NONE Renal: NONE Musculoskeletal: NONE Psychiatric: NONE Endocrine: hypothyroidism Blood Disorders: NONE Cancer(s): NONE WIRELESS COMMUNICATIONS ENGINEER/Reproductive: NONE Surgical History Surgical History: thyroidectomy hand surgery ROTATOR CUFF ANKLE SURGERY Family History Relations & Conditions If Any: FATHER Relation not specified for: FHx: dementia Psychosocial History Where Do You Live? Home Smoking Status: Current Everyday Smoker ETOH Use: denies use Illicit Drug Use: denies illicit drug use Review of Systems Review of Systems Constitutional: Reports: see HPI. EENTM: Denies: no symptoms. Cardiovascular: Denies: no symptoms. Respiratory: Reports: see HPI. Denies: cough, hemoptysis. GI: Reports: see HPI. Genitourinary: Reports: see HPI. Musculoskeletal: Reports: no symptoms. Skin: Reports: no symptoms. Neurological/Psychological: Reports: no symptoms. Hematologic/Endocrine: Reports: no symptoms. Exam & Diagnostic Data Vital Signs and I&O Vital Signs Date Time Temp Pulse Resp B/P B/P Pulse O2 O2 Flow FiO2 Mean Ox Delivery Rate 12/03 1400 97.9 64 18 86/48 93 Room Air 12/03 1158 53 100/60 12/03 1113 Room Air Room Air 12/03 0910 69 90/64 12/03 0816 69 90/64 12/03 0800 Room Air 12/03 0648 97.5 73 18 92/60 94 Room Air 12/02 2212 97.4 59 20 122/80 97 Room Air 12/02 2032 Room Air 12/02 2019 97.3 60 18 145/87 12/02 1913 97.3 60 18 145/87 95 12/02 1856 97.8 64 18 122/81 98 Room Air Intake & Output 12/03 1600 12/03 0400 12/02 1600 12/02 0400 12/01 1600 12/01 0400 Intake Total 800 100 Output Total Balance 800 100 Intake, IV 0 Intake, Oral 800 100 Patient 167 lb 180 lb Weight Weight Bed scale Reported by Patient Measurement Method Physical Exam General Appearance: no apparent distress Head: atraumatic, normal appearance Eyes: Bilateral: normal appearance. Ears, Nose, Throat: hearing grossly normal Neck: normal inspection, supple Cardiovascular: regular rate/rhythm, Normal S1 and S2 without rub, murmur or gallop Gastrointestinal: normal bowel sounds, soft, non-tender, no organomegaly Extremities: normal inspection Neurologic/Psych: no motor/sensory deficits, awake, alert, oriented x 3 Cranial Nerves: Cranial Nerves II-XII intact Grossly Skin: intact, normal color Results Pertinent Lab Results: Laboratory Tests 12/03 12/02 0630 1441 Chemistry Sodium (137 - 145 mmol/L) 143 145 Potassium (3.5 - 5.1 mmol/L) 4.4 5.1 Chloride (98 - 107 mmol/L) 108 H 104 Carbon Dioxide (22 - 30 mmol/L) 24 30 Anion Gap (5 - 16) 11 10 BUN (9 - 20 mg/dL) 15 16 Creatinine (0.7 - 1.2 mg/dL) 0.8 0.8 Estimated GFR (>60 ml/min) > 60 > 60 BUN/Creatinine Ratio (7 - 25 %) 18.8 20.0 Glucose (65 - 99 mg/dL) 96 Calcium (8.4 - 10.2 mg/dL) 9.8 Total Bilirubin (0.2 - 1.3 mg/dL) 0.6 AST (17 - 59 U/L) 21 ALT (21 - 72 U/L) 30 Alkaline Phosphatase (< 127 U/L) 79 Lactate Dehydrogenase (313 - 618 U/L) 361 Troponin I (<0.11 ng/ml) < 0.01 Total Protein (6.3 - 8.2 g/dL) 7.1 Albumin (3.5 - 5.0 g/dL) 4.0 Globulin (1.9 - 4.2 gm/dL) 3.1 Albumin/Globulin Ratio (1.1 - 2.2 %) 1.3 Amylase (30 - 110 U/L) 42 Lipase (23 - 300 U/L) 107 Cortisol PM Sample (1.7 - 14.1) 7.4 Hematology CBC w Diff NO MAN DIFF REQ NO MAN DIFF REQ WBC (4.8 - 10.8 /CUMM) 7.5 9.9 RBC (4.70 - 6.10 /CUMM) 4.51 L 4.71 Hgb (14.0 - 18.0 G/DL) 13.9 L 14.6 Hct (42 - 52 %) 42.3 44.4 MCV (80.0 - 94.0 FL) 93.9 94.3 H MCH (27.0 - 31.0 PG) 30.9 31.1 H MCHC (33.0 - 37.0 G/DL) 32.9 L 33.0 RDW (11.5 - 14.5 %) 14.7 H 14.1 Plt Count (130 - 400 /CUMM) 294 300 MPV (7.4 - 10.4 FL) 8.6 7.9 Gran % (42.2 - 75.2 %) 57.2 61.4 Lymphocytes % (20.5 - 51.1 %) 32.9 29.9 Monocytes % (1.7 - 9.3 %) 6.4 6.1 Eosinophils % (0 - 5 %) 3.1 2.3 Basophils % (0.0 - 2.0 %) 0.4 0.3 Absolute Granulocytes (1.4 - 6.5 /CUMM) 4.3 6.1 Absolute Lymphocytes (1.2 - 3.4 /CUMM) 2.5 2.9 Absolute Monocytes (0.10 - 0.60 /CUMM) 0.5 0.6 Absolute Eosinophils (0.0 - 0.7 /CUMM) 0.2 0.2 Absolute Basophils (0.0 - 0.2 /CUMM) 0 0 03/15 1430 Toxicology Urine Opiates Screen (>2000 NG/ML) < 100 Methadone Screen (>300 NG/ML) < 40 Barbiturate Screen (>200 NG/ML) < 60 Ur Phencyclidine Scrn (>25 NG/ML) < 6.00 Amphetamines Screen (>1000 NG/ML) < 100 U Benzodiazepines Scrn (>200 NG/ML) 103 Urine Cocaine Screen (>300 NG/ML) < 50 Urine Cannabis Screen (>50 NG/ML) < 5.00 Urines Urine Color (YEL,AMB,STR) YEL Urine Clarity (CLEAR) CLEAR Urine pH (5.0 - 8.0) 6.5 Ur Specific [place] (1.001 - 1.035) 1.010 Urine Protein (NEG,<30 MG/DL) NEG Urine Ketones (NEG) NEG Urine Nitrite (NEG) NEG Urine Bilirubin (NEG) NEG Urine Urobilinogen (0.1 - 1.0 EU/dl) 0.2 Ur Leukocyte Esterase (NEG) NEG Ur Microscopic EXAM NOT REQUIRED Urine Hemoglobin (NEG) NEG Urine Glucose (N MG/DL) NEG Assessment/Plan Assessment/Recommendations: ASSESSMENT: 1. New Lesion on Chest CT -- likely Lung CA 2. Weight Loss, likely due to #1. Patient has anorexia likely related to lung cancer. 3. 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 He describes some bloating. He does not have obstructive symptoms nor does he have any change in his bowel habits. Although patient is eager for GI evaluation, I believe that workup for new pulmonary nodule should take precedence. PLAN: I have spoken with Dr. Kemp who Dr. Valdivia's answering service told me was [employer] product consultant this weekend. He will see patient over the weekend and discuss the finding on Chest CT with him. I do not believe there is a strong role for GI here at this time. If patient needs GI evaluation it can be done as an outpatient in follow up with Dr. Toledo. We will sign off. Please do not hesitate to contact us as needed. Consult Acknowledgment - Thank you for your consult request.
[2017-12-03 22:52] VITALS: BP 108/62
[2017-12-04 06:00] VITALS: BP 118/78
--- NOTE | 2017-12-04 08:37 | PN- Housestaff ---
Subjective Follow-up For: Recurrent falls and imbalance Significant weight loss and postprandial abdominal pain History of total thyroidectomy and hypothyroidism History of GERD History of depression and anxiety Hematuria History of narcotic use Subjective: No overnight event. patient was resting under RA without complaints. denied CP/ dizziness/weakness, and able to ambulate around without assitance. Would like to have a shower. No other specific complaint. Review of Systems Constitutional: Reports: see HPI. Objective Last 24 Hrs of Vital Signs/I&O Vital Signs Date Time Temp Pulse Resp B/P B/P Pulse O2 O2 Flow FiO2 Mean Ox Delivery Rate 12/04 0831 122/62 12/04 0600 98.2 58 18 118/78 94 12/03 2252 98.7 66 18 108/62 94 12/03 1400 97.9 64 18 86/48 93 Room Air 12/03 1158 53 100/60 12/03 1113 Room Air Room Air Intake & Output 12/04 1600 12/04 0800 12/04 0000 Intake Total 240 540 Output Total Balance 240 540 Intake, Oral 240 540 Physical Exam General Appearance: Alert, Oriented X3, Cooperative, No Acute Distress Cardiovascular: Regular Rate Lungs: Clear to Auscultation, Normal Air Movement Abdomen: Normal Bowel Sounds, Soft, No Tenderness Neurological: Normal Speech Extremities: No Edema, Normal Pulses Current Medications: Current Medications Sig/Minesh Start time Last Medication Dose Route Stop Time Status Admin Acetaminophen 650 MG Q6PRN PRN 12/02 1600 AC 12/02 PO 2006 Albuterol Sulfate 2 PUF Q4P PRN 12/02 1630 AC INH Budesonide/ 2 PUF Q12 12/04 1000 AC 12/04 Formoterol Fumarate INH 0832 Budesonide/ 2 PUF Q12H 12/03 1900 DC 12/04 Formoterol Fumarate INH 0555 Enoxaparin Sodium 40 MG DAILY 12/02 1556 AC 12/04 SC 0830 Gabapentin 300 MG QPM 12/02 2200 AC 12/03 PO 2113 Levothyroxine Sodium 0.1 MG DAILY AC 12/03 0700 AC 12/04 PO 0554 Lorazepam 2 MG QPM 12/02 2200 AC 12/03 PO 2113 Nicotine 7 MG Q24 12/02 1555 AC 12/04 TOP 0831 Omeprazole 40 MG DAILY AC 12/02 1628 AC 12/04 PO 0554 Sertraline HCl 150 MG DAILY 12/02 1628 AC 12/04 PO 0830 Tamsulosin HCl 0.4 MG DAILY 12/02 1629 AC 12/04 PO 0831 Last 24 Hrs of Lab/Joe Results Last 24 Hrs of Labs/Mics: Laboratory Tests 12/04/17 0616: Sodium Pending, Potassium Pending, Chloride Pending, Carbon Dioxide Pending, Anion Gap Pending, BUN Pending, Creatinine Pending, BUN/Creatinine Ratio Pending , CBC w Diff NO MAN DIFF REQ, RBC 4.57 L, MCV 94.9 H, MCH 31.6 H, MCHC 33.3, RDW 14.2, MPV 8.6, Gran % 54.9, Lymphocytes % 32.9, Monocytes % 8.6, Eosinophils % 3.2, Basophils % 0.4, Absolute Granulocytes 4.7, Absolute Lymphocytes 2.8, Absolute Monocytes 0.7 H, Absolute Eosinophils 0.3, Absolute Basophils 0 Assessment/Plan Assessment: 57 years old male with past medical history of hypothyroidism,HLD, and anxiety, GERD, lung nodule, cervical disc disease, gait instability, memory loss, narcotic addiction who quit in 2013 comes into the ED sent by Dr. Valdivia for frequent falls for the past 46 weeks.Patient also reports having headache because he bumped his head when he fell down a few days ago. Patient reports with loss of 3040 pounds over the past 3 months due to loss of appetite and abdominal pain after eating. The patient was using Ensure to supplement his diet. Head and neck MRI showed : no acute intracranial findings,No enhancing lesions. Mild chronic microangiopathy.Multilevel cervical spondylosis.There is prominent symmetric soft tissue at the tongue base, likely lingual tonsillar hypertrophy CT chest:: There is a new irregularly shaped 1.3 cm AP by 0.9 cm TV by 1.9 cm CC nodule within the medial aspect of the left upper lobe inseparable from and occluding a left upper lobe segmental bronchus and tracking along a few subsegmental bronchi in this region on image 179 of series 4. There are pulmonary arterial branches along the anterior and posterior medial margin of this lesion and there is a pulmonary vein along the anterolateral margin of this lesion. Findings are highly concerning for pulmonary malignancy and can be followed with PET and/or biopsy. - There are multiple nodular groundglass opacities within the medial aspect of the left upper lobe not present on prior studies that may be infectious, inflammatory, or neoplastic in etiology. - There is nodularity of the left adrenal gland that can be further assessed with a PET/CT in light of the above findings. Carotid Doppler: Unremarkable carotid ultrasound Problem list: Recurrent falls and imbalance New lung lesion seen on CT Significant weight loss and postprandial abdominal pain History of total thyroidectomy and hypothyroidism History of GERD History of depression and anxiety Hematuria History of narcotic use Plan: Orthostatic blood pressure were positive, however, patient had no more dizziness /weakness and could ambulate freely overnight. Random cortisol level WNL 7.4 lactic acid, LDH WNL, no signs of bowel ischemia Gastroenterology consult appreciated Pulm recommended outpatient PET scan follow up for new incidental findings on chest CT. Counselled on smoking cessation. Pending discharge today. Continue home meds Full code DVT prophylaxis with subcutaneous Lovenox Regular diet Problem List: 1. Weight loss 2. Syncope 3. Abdominal pain Pain Ratin Pain Location: NA Pain Goal: Remain pain free Pain Plan: see AP Tomorrow's Labs & Rationales: NA
[2017-12-04 09:24] LABS: ABSOLUTE BASOPHIL COUNT 0 /CUMM (0.0-0.2); ABSOLUTE EOSINOPHIL COUNT 0.3 /CUMM (0.0-0.7); ABSOLUTE GRANULOCYTE CT 4.7 /CUMM (1.4-6.5); ABSOLUTE LYMPH COUNT 2.8 /CUMM (1.2-3.4); ABSOLUTE MONOCYTE COUNT 0.7 /CUMM (0.10-0.60); BASOPHIL % 0.4 % (0.0-2.0); EOSINOPHIL % 3.2 % (0-5); GRANULOCYTE % 54.9 % (42.2-75.2); HEMATOCRIT 43.4 % (42-52); MEAN CORPUSCULAR HGB 31.6 PG (27.0-31.0); MEAN CORPUSCULAR HGB CONC 33.3 G/DL (33.0-37.0); MEAN CORPUSCULAR VOLUME 94.9 FL (80.0-94.0); MEAN PLATELET VOLUME 8.6 FL (7.4-10.4); PLATELET COUNT 301 /CUMM (130-400); RBC DISTRIBUTION WIDTH 14.2 % (11.5-14.5); RED BLOOD CELL CT 4.57 /CUMM (4.70-6.10); WHITE BLOOD CELL COUNT 8.6 /CUMM (4.8-10.8)
--- NOTE | 2017-12-04 11:02 | Event Note ---
Event Note Event Note: results of ct scan reviewed withpt informed of need for follow up with dr reese wednesday for PET scan smoking cessation discussed
[2017-12-04 14:34] VITALS: BP 136/60
--- NOTE | 2017-12-04 15:50 | PN- Att Addend ---
Attending Addendum Attending Brief Note No new neurological issues. Patient comfortable in bed, at the bedside Vital signs are stable no fever no new changes on physical. Neurologic: Examination was not done by specialist, was called several times the patient anxious to go home with patient already has an outpatient appointment with neurologist, might be able to move with a little closer and will let the patient go home to follow with Dr. Valdivia and the neurologist. She is CMR. Intake & Output 12/04 04012/02 0400 Intake Total 240 540 800 100 Output Total Balance 240 540 800 100 Intake, IV 0 Intake, Oral 240 540 800 100 Patient 167 lb 180 lb Weight Weight Bed scale Reported by Patient Measurement Method Laboratory Tests 12/04/17 0616: Anion Gap 12, Estimated GFR > 60, BUN/Creatinine Ratio 22.9, CBC w Diff NO MAN DIFF REQ, RBC 4.57 L, MCV 94.9 H, MCH 31.6 H, MCHC 33.3, RDW 14.2, MPV 8.6, Gran % 54.9, Lymphocytes % 32.9, Monocytes % 8.6, Eosinophils % 3.2, Basophils % 0.4, Absolute Granulocytes 4.7, Absolute Lymphocytes 2.8, Absolute Monocytes 0.7 H, Absolute Eosinophils 0.3, Absolute Basophils 0 12/03/17 0630: Anion Gap 11, Estimated GFR > 60, BUN/Creatinine Ratio 18.8, CBC w Diff NO MAN DIFF REQ, RBC 4.51 L, MCV 93.9, MCH 30.9, MCHC 32.9 L, RDW 14.7 H, MPV 8.6, Gran % 57.2, Lymphocytes % 32.9, Monocytes % 6.4, Eosinophils % 3.1, Basophils % 0.4, Absolute Granulocytes 4.3, Absolute Lymphocytes 2.5, Absolute Monocytes 0.5 , Absolute Eosinophils 0.2, Absolute Basophils 0 12/02/17 1441: Anion Gap 10, Estimated GFR > 60, BUN/Creatinine Ratio 20.0, Glucose 96, Calcium 9.8, Total Bilirubin 0.6, AST 21, ALT 30, Alkaline Phosphatase 79, Lactate Dehydrogenase 361, Troponin I < 0.01, Total Protein 7.1, Albumin 4.0, Globulin 3.1, Albumin/Globulin Ratio 1.3, Amylase 42, Lipase 107, Cortisol PM Sample 7.4, CBC w Diff NO MAN DIFF REQ, RBC 4.71, MCV 94.3 H, MCH 31.1 H, MCHC 33.0, RDW 14.1, MPV 7.9, Gran % 61.4, Lymphocytes % 29.9, Monocytes % 6.1, Eosinophils % 2.3, Basophils % 0.3, Absolute Granulocytes 6.1, Absolute Lymphocytes 2.9, Absolute Monocytes 0.6, Absolute Eosinophils 0.2, Absolute Basophils 0 12/02/17 1430: Urine Opiates Screen < 100, Methadone Screen < 40, Barbiturate Screen < 60, Ur Phencyclidine Scrn < 6.00, Amphetamines Screen < 100, U Benzodiazepines Scrn 103 , Urine Cocaine Screen < 50, Urine Cannabis Screen < 5.00, Urine Color YEL, Urine Clarity CLEAR, Urine pH 6.5, Ur Specific [place] 1.010, Urine Protein NEG, Urine Ketones NEG, Urine Nitrite NEG, Urine Bilirubin NEG, Urine Urobilinogen 0.2, Ur Leukocyte Esterase NEG, Ur Microscopic EXAM NOT REQUIRED, Urine Hemoglobin NEG, Urine Glucose NEG Vital Signs Date Time Temp Pulse Resp B/P B/P Pulse O2 O2 Flow FiO2 Mean Ox Delivery Rate 12/04 1434 98.3 57 20 136/60 93 12/04 0831 122/62 12/04 0600 98.2 58 18 118/78 94 12/03 2252 98.7 66 18 108/62 94
== END 2017-12-04 15:05 | DRG 93 ==
LOC: ERH 12:34 → ERHI 14:42 → 1NO 14:42 → ENTRNSPT 16:12 → EDTRNSPTSTS 16:18 → EDTRNSPT 16:18 → ENRESERV 17:18 → CMPTRNSPT 19:50 → DELTRNSPT 20:13 → 1NO 20:38 → ENPENDDIS 12-04 14:40 → 1NO 12-04 15:05
PROVIDERS: Emergency Medicine; Student in an Organized Health Care Education/Training Program
DX: R26.89 Other abnormalities of gait and mobility (principal); M50.21 Other cervical disc displacement, high cervical region; R42 Dizziness and giddiness; E78.5 Hyperlipidemia, unspecified; Z91.81 History of falling; W18.30XA Fall on same level, unspecified, initial encounter; M47.22 Other spondylosis with radiculopathy, cervical region; E89.0 Postprocedural hypothyroidism; R27.0 Ataxia, unspecified; F17.210 Nicotine dependence, cigarettes, uncomplicated; R63.4 Abnormal weight loss; Z68.25 Body mass index [BMI] 25.0-25.9, adult; K21.9 Gastro-esophageal reflux disease without esophagitis; R51 Headache; R10.9 Unspecified abdominal pain; J44.9 Chronic obstructive pulmonary disease, unspecified; R31.9 Hematuria, unspecified; R91.1 Solitary pulmonary nodule; F41.9 Anxiety disorder, unspecified; Z79.82 Long term (current) use of aspirin; Z79.51 Long term (current) use of inhaled steroids; K57.90 Diverticulosis of intestine, part unspecified, without perforation or abscess without bleeding; F32.9 Major depressive disorder, single episode, unspecified; K63.5 Polyp of colon; R39.15 Urgency of urination; R41.3 Other amnesia; F11.21 Opioid dependence, in remission
CPT/HCPCS: 1NSP; 70552; 72142; 36415; 36592; 70553; 71045; 72156; 80307; 81003; 82436; 93005; 93010; 97116-GO; 97161-GP; A9579; J1650; J1885; J3490